=== PATIENT | female | born 1940 | race Caucasian/White ===

== ENCOUNTER 2021-09-19 08:41 | Day surgery (SDC) | payer MEDICARE, MEDICAID ==
[~2021-09-19] VITALS: Ht 157.5 cm; Wt 85.4 kg
[~2021-09-19 08:41] MED LIST: ASPIRIN 81 MG CHEWABLE TABLET ONE; ASPIRIN 81 MG CHEWABLE TABLET PO ONE; ATOR-2 PO; CARV25TA32 PO; DIAZEPAM 5 MG TABLET ONE; DIAZEPAM 5 MG TABLET PO ONE; DiphenhydrAMINE HCL 50 MG CAPSULE ONE; DiphenhydrAMINE HCL 50 MG CAPSULE PO ONE; ESLI600T PO; GABA-1181 PO; HYDR-4174 PO; HYDR25TA2 PO; LEVE10006 PO; LINA5TAB PO; LOSA1TAB40 PO; SODIUM CHLORIDE 0.9% 1,000 ML IV ONE; SODIUM CHLORIDE 0.9% 1,000 ML ONE
[2021-09-19 10:11] LABS: GLUCOMETER DEV NAME(LOC) SDS.; GLUCOSE,POINT OF CARE 92 MG/DL (70-110)
[2021-09-19] MEDS ORDERED: IOHEXOL 300 MG/ML 50 ML VIAL ONE (11:31)
[2021-09-19] MEDS ORDERED: LIDOCAINE/PF 1% 30 ML VIAL ONE (11:31)
[2021-09-19] MEDS ORDERED: IOHEXOL 300 MG/ML 100 ML VIAL ONE (11:32)
[2021-09-19] MEDS ORDERED: SODIUM BICARBONATE 50 MEQ/50 ML VIAL ONE (11:32)
[2021-09-19] MEDS ORDERED: IOHEXOL 300 MG/ML 150 ML VIAL ONE ×2 (11:32→12:14)
[2021-09-19] MEDS ORDERED: FentaNYL CITRATE PF 100 MCG/2 ML VIAL ONE (11:39)
[2021-09-19] MEDS ORDERED: MIDAZOLAM HCL 2 MG/2 ML VIAL ONE (11:39)
[2021-09-19 11:40] VITALS: BP 199/93
[2021-09-19] MEDS ORDERED: FentaNYL CITRATE PF 100 MCG/2 ML VIAL IVP ONE (11:45)
[2021-09-19] MEDS ORDERED: HEPARIN SODIUM 1000 UNITS/NS 1,000 ML IARTER ONE (11:45)
[2021-09-19] MEDS ORDERED: IOHEXOL 300 MG/ML 150 ML VIAL IARTER ONE (11:45)
[2021-09-19] MEDS ORDERED: LIDOCAINE 1% 30 ML/SOD BICARB 8.4% 4 ML SQ ONE (11:45)
[2021-09-19] MEDS ORDERED: MIDAZOLAM HCL 2 MG/2 ML VIAL IVP ONE (11:45)
[2021-09-19] MEDS ORDERED: HEPARIN SODIUM,PORCINE 5,000 UNITS/ML VIAL IVP ONE (12:15)
[2021-09-19] MEDS ORDERED: HydrALAZINE HCL 20 MG/ML VIAL ONE (12:15)
[2021-09-19] MEDS ORDERED: NITROGLYCERIN 400 MCG/SUBLINGUAL SPRAY 4.9 GM BOTTLE SL ONE ×2 (12:26→12:30)
[2021-09-19] MEDS ORDERED: HydrALAZINE HCL 20 MG/ML VIAL IVP ONE ×2 (12:30)
[2021-09-19] MEDS ORDERED: TICAGRELOR 90 MG TABLET PO ONE ×2 (12:30→16:30)
[2021-09-19 12:34] VITALS: BP 183/66
[2021-09-19] MEDS ORDERED: TICAGRELOR 90 MG TABLET ONE (13:05)
== END 2021-09-19 16:30 | disposition home or self-care (01) ==
LOC: CATHLAB 08:41
PROVIDERS: ATTEND Internal Medicine Interventional Cardiology
DX: R94.39 Abnormal result of other cardiovascular function study (principal); I25.10 Atherosclerotic heart disease of native coronary artery without angina pectoris; I10 Essential (primary) hypertension; E11.9 Type 2 diabetes mellitus without complications; E78.5 Hyperlipidemia, unspecified; G62.9 Polyneuropathy, unspecified; Z79.899 Other long term (current) drug therapy; Z98.890 Other specified postprocedural states; Z96.653 Presence of artificial knee joint, bilateral; Z87.891 Personal history of nicotine dependence
CPT/HCPCS: 82962; 92978; 92979; 93005; 93458; 99152; 99153; C1757; C1760; C1874; C1887; C9600; J0360; J2250; J3010; J3490 ×2; J7030; Q9967 ×3; 37236; 75960; 92928

== ENCOUNTER 2021-10-20 08:32 | Day surgery (SDC) | payer MEDICARE, MEDICAID ==
[~2021-10-20] VITALS: Ht 160 cm; Wt 83.9 kg
[~2021-10-20 08:32] MED LIST changes: +AMLO-257 PO; +ASPI-1450 PO; -ASPIRIN 81 MG CHEWABLE TABLET ONE; -ASPIRIN 81 MG CHEWABLE TABLET PO ONE; -DIAZEPAM 5 MG TABLET ONE; -DIAZEPAM 5 MG TABLET PO ONE; -DiphenhydrAMINE HCL 50 MG CAPSULE ONE; -DiphenhydrAMINE HCL 50 MG CAPSULE PO ONE; +FOLI-130 PO; -SODIUM CHLORIDE 0.9% 1,000 ML IV ONE; +TICA90TA PO
[2021-10-20] MEDS ORDERED: SODIUM CHLORIDE 0.9% 1,000 ML IV ONE (09:00)
[2021-10-20 09:41] LABS: GLUCOMETER DEV NAME(LOC) SDS.; GLUCOSE,POINT OF CARE 113 MG/DL (70-110)
[2021-10-20] MEDS ORDERED: DIAZEPAM 5 MG TABLET PO ONE (10:00)
[2021-10-20] MEDS ORDERED: ASPIRIN 81 MG CHEWABLE TABLET PO ONE (10:00)
[2021-10-20] MEDS ORDERED: DiphenhydrAMINE HCL 50 MG CAPSULE PO ONE (10:00)
[2021-10-20] MEDS ORDERED: DiphenhydrAMINE HCL 50 MG CAPSULE ONE (10:33)
[2021-10-20] MEDS ORDERED: ASPIRIN 81 MG CHEWABLE TABLET ONE ×2 (10:33→10:43)
[2021-10-20] MEDS ORDERED: DIAZEPAM 5 MG TABLET ONE (10:33)
[2021-10-20] MEDS ORDERED: ASPI-1444 PO (10:51)
[2021-10-20] MEDS ORDERED: LEVE1000 PO (10:51)
[2021-10-20] MEDS ORDERED: LOSA-382 PO (10:51)
[2021-10-20] MEDS ORDERED: IOHEXOL 300 MG/ML 50 ML VIAL ONE (12:11)
[2021-10-20] MEDS ORDERED: HEPARIN SODIUM 1000 UNITS/NS 1,000 ML ONE (12:12)
[2021-10-20] MEDS ORDERED: IOHEXOL 300 MG/ML 150 ML VIAL ONE (12:12)
[2021-10-20] MEDS ORDERED: SODIUM BICARBONATE 50 MEQ/50 ML VIAL ONE (12:12)
[2021-10-20] MEDS ORDERED: IOHEXOL 300 MG/ML 100 ML VIAL ONE (12:12)
[2021-10-20] MEDS ORDERED: LIDOCAINE/PF 1% 30 ML VIAL ONE (12:12)
[2021-10-20 12:21] VITALS: BP 159/78
[2021-10-20] MEDS ORDERED: FentaNYL CITRATE PF 100 MCG/2 ML VIAL ONE (12:22)
[2021-10-20] MEDS ORDERED: MIDAZOLAM HCL 2 MG/2 ML VIAL ONE (12:23)
[2021-10-20] MEDS ORDERED: FentaNYL CITRATE PF 100 MCG/2 ML VIAL IVP ONE (12:45)
[2021-10-20] MEDS ORDERED: IOHEXOL 300 MG/ML 150 ML VIAL ICOR ONE (12:45)
[2021-10-20] MEDS ORDERED: MIDAZOLAM HCL 2 MG/2 ML VIAL IVP ONE (12:45)
[2021-10-20] MEDS ORDERED: LIDOCAINE 1% 30 ML/SOD BICARB 8.4% 4 ML SQ ONE (12:45)
[2021-10-20] MEDS ORDERED: HEPARIN SODIUM 1000 UNITS/NS 1,000 ML IARTER ONE (12:45)
[2021-10-20] MEDS ORDERED: HEPARIN SODIUM,PORCINE 5,000 UNITS/ML VIAL IVP ONE (13:00)
[2021-10-20] MEDS ORDERED: HydrALAZINE HCL 20 MG/ML VIAL ONE (13:16)
[2021-10-20 13:24] VITALS: BP 180/68
[2021-10-20] MEDS ORDERED: TICAGRELOR 90 MG TABLET ONE (13:24)
[2021-10-20] MEDS ORDERED: TICAGRELOR 90 MG TABLET PO ONE (13:30)
[2021-10-20] MEDS ORDERED: HydrALAZINE HCL 20 MG/ML VIAL IVP ONE (13:30)
[2021-10-20] MEDS ORDERED: IOHEXOL 300 MG/ML 50 ML VIAL ICOR ONE (13:45)
== END 2021-10-20 18:55 | disposition home or self-care (01) ==
LOC: CATHLAB 08:32
PROVIDERS: ATTEND Internal Medicine Interventional Cardiology
DX: R94.39 Abnormal result of other cardiovascular function study (principal); I25.119 Atherosclerotic heart disease of native coronary artery with unspecified angina pectoris; Z79.899 Other long term (current) drug therapy; I10 Essential (primary) hypertension; E66.01 Morbid (severe) obesity due to excess calories; E78.5 Hyperlipidemia, unspecified; E11.9 Type 2 diabetes mellitus without complications; Z98.890 Other specified postprocedural states
CPT/HCPCS: 82962; 92978; 93005; 93458; 99152; 99153; C1753; C1757; C1760; C1874; C1887; C9600; J0360; J1644; J2250; J3010; J3490 ×2; J7030; Q9967 ×2; 75960; 92928